=== PATIENT | male | born 1980 | race Caucasian/White ===

== ENCOUNTER 2017-04-21 05:47 | Day surgery (SDC) | payer OTHER ==
[~2017-04-21] VITALS: Ht 188 cm; Wt 104.1 kg
[2017-04-21] MEDS ORDERED: SODIUM CHLORIDE 0.9% 1,000 ML IV ONE ×2 (06:05→06:30)
[2017-04-21] MEDS ORDERED: FentaNYL CITRATE-PF 100 MCG/2 ML VIAL ONE (07:49)
[2017-04-21] MEDS ORDERED: MIDAZOLAM HCL 2 MG/2 ML VIAL ONE (07:49)
[2017-04-21] MEDS ORDERED: MethylPREDNISolone SOD SUCC 125 MG/2 ML VIAL IVP ONE (08:45)
[2017-04-21] MEDS ORDERED: MethylPREDNISolone SOD SUCC 125 MG/2 ML VIAL ONE (08:55)
[2017-04-21] MEDS ORDERED: BENZOCAINE 20% 50 MCG/SPRAY 57 GM TP ONE (12:22)
[2017-04-21] MEDS ORDERED: LIDOCAINE HCL 4% 50 ML SOLUTION TP ONE (12:22)
[2017-04-21] MEDS ORDERED: LIDOCAINE HCL 2% 30 ML JELLY TP ONE (12:22)
[2017-04-21] MEDS ORDERED: EPINEPHrine 1:1,000 [1 MG/ML] AMP SQ ONE (12:22)
[2017-04-21] MEDS ORDERED: OXYGEN THERAPY IH SCH (20:00)
== END 2017-04-21 09:40 | disposition home or self-care (01) ==
LOC: SURGERY 05:47
PROVIDERS: ATTEND Internal Medicine Critical Care Medicine
DX: J38.4 Edema of larynx (principal); B37.0 Candidal stomatitis; Z87.891 Personal history of nicotine dependence
CPT/HCPCS: 31623; 31624; 71010; 87015 ×2; 87070; 87101; 87205; 87220; 88108; 88312; J0171; J2250; J2930; J3010; J7030